=== PATIENT | female | born 1955 | race Caucasian/White ===

== ENCOUNTER 2022-10-29 14:54 | Emergency (ER) | payer OTHER, MEDICAID ==
[~2022-10-29] VITALS: Ht 172.7 cm; Wt 86.0 kg
[2022-10-29 14:59] VITALS: BP 195/118
[2022-10-29] MEDS ORDERED: TETanus/Pertussis (Acell)/Diphther VAC/PF (Tdap-Adult) 0.5ml syringe IMVAC ONE (15:15)
[2022-10-29] MEDS ORDERED: LIDOcaine 1% 30ml preserv. free vial IJ ONE ×2 (15:15→15:25)
[2022-10-29] MEDS ORDERED: mupirocin 2% ointment 22GM TP ONE (15:15)
[2022-10-29] MEDS ORDERED: LIDOcaine 1% W/epiNEPHrine 1:100,000 20ml vial IJ ONE (15:30)
--- NOTE | 2022-10-29 15:51 | NUR ---
Pt in [facility]13. Pt was painting and slipped of the latter. Pt went to catch herself from falling and cought her R wrist leaving a laceration.
== END 2022-10-29 16:09 | disposition home or self-care (01) ==
LOC: ER 14:54
DX: S61.511A Laceration without foreign body of right wrist, initial encounter (principal); Z88.5 Allergy status to narcotic agent; X58.XXXA Exposure to other specified factors, initial encounter; Y93.89 Activity, other specified; Y92.89 Other specified places as the place of occurrence of the external cause; Y99.8 Other external cause status
CPT/HCPCS: 12002; 90471; 90715; 99284; J3490; A6449